=== PATIENT | female | born 1975 | race Two or more races ===

== ENCOUNTER 2016-08-26 14:53 | Emergency (ER) | payer BC ==
[~2016-08-26] VITALS: Ht 157.5 cm; Wt 77.1 kg
[2016-08-26 15:00] VITALS: BP 134/94
== END 2016-08-26 18:23 | disposition home or self-care (01) ==
LOC: EDBD 14:53 → ER 15:01
DX: S46.912A Strain of unspecified muscle, fascia and tendon at shoulder and upper arm level, left arm, initial encounter (principal); S86.912A Strain of unspecified muscle(s) and tendon(s) at lower leg level, left leg, initial encounter; V43.52XA Car driver injured in collision with other type car in traffic accident, initial encounter; Y93.89 Activity, other specified; Y99.8 Other external cause status; Y92.89 Other specified places as the place of occurrence of the external cause
CPT/HCPCS: 73030; 73562